=== PATIENT | male | born 1955 | race Caucasian/White ===

== ENCOUNTER 2017-04-17 05:38 | Inpatient (IN) | payer BC ==
--- NOTE | 2017-04-08 17:50 | HP ---
HISTORY OF PRESENT ILLNESS: Mr. Aaron is a 62-year-old male, who presents with symptoms of neurogeni c claudication. With standing and walking, he has extreme pain, tingling, numbness in bilateral legs and thighs, weakness in the posterior thighs. After standing for more than 5 minutes, he complains of numbness in the S1 dermatome bilaterally. He can walk for about 200 yards before having to sit do wn and lean forward, which immediately relieves the pain in his legs. The pain is helped somewhat wi th tramadol. He has not tried physical therapy for injections for that in the lumbar spine. He jose es any bowel or bladder incontinence. IMAGING: MRI and x-rays of his spine are on CD. REVIEW OF SYSTEMS: Ten-point review of systems complete is otherwise negative unless stated in the a aimee HPI. PAST MEDICAL HISTORY: Meningitis, broken left ankle, right shoulder, right rotator cuff. PAST SURGICAL HISTORY: Left ankle surgery at the age 30, right shoulder and rotator cuff repair in 2 012. HOSPITALIZATIONS: For surgeries only. FAMILY HISTORY: Noncontributory. SOCIAL HISTORY: Former smoker for 40 years 2 packs a day. Drinks alcohol daily. Retired maintenance mechanic telephone. He is and has 1 child. MEDICATIONS: 1. Taking Lisinopril 20 mg tablet 1 tablet orally once a day. 2. Celecoxib 400 mg capsule 1 capsule with food orally once a day. 3. Tramadol HCL 50 mg tablet 1 tablet as needed orally q.6 hours. 4. mide 10 mg tablet 1 tablet orally once a day. 5. Gabapentin 100 mg capsule 1 capsule orally 3 times a day. ALLERGIES: No known drug allergies. PHYSICAL EXAMINATION: HEENT: Normocephalic, atraumatic. Hearing intact. Moist mucous membranes. Trachea is midline. EYES: Pupils are equal and reactive to light. Extraocular muscles are intact. Sclerae is white, no nicteric. PSYCHIATRIC: Normal mood and affect. CARDIOVASCULAR/CARDIOPULMONARY: No cyanosis or clubbing noted. Intact pedal pulses bilaterally. MUSCULOSKELETAL: Lower extremities, 5/5 strength in bilateral iliopsoas, quadriceps, hamstrings, rig ht tibialis anterior, extensor hallucis longus. Subjective weakness when standing for more than 5 mi nutes. Sensory deficits in multiple dermatomal patterns. Tender to palpation in the midline lumbar spine. RESPIRATORY: The patient has bilateral symmetric chest rise. Appears to be no shortness breath all lung santos sound clear with no wheezing or crackles. NEUROLOGIC: Cranial nerves II-XII are grossly intact. Speech is fluent. Answers my questions appro priately. He has an antalgic gait and station. ASSESSMENT: 1. Neurogenic claudication due to lumbar spinal stenosis. 2. Epidural lipomatosis. 3. Spondylolisthesis in lumbosacral region. PLAN: Dr. Sanchez offered an L3-S1 with L5-S1 TLIF laminectomy. Informed consent was given. We d iscussed the indications, risks, benefits, alternatives, and expected results from surgery. The risk s discussed included, but were not limited to bleeding, infection, CSF leak, nerve damage, weakness, incontinence, cauda equina injury, arachnoiditis, paralysis, ventilator dependence, wheelchair depend ence, loss of vision, hardware misplacement, cardiopulmonary complications of anesthesia or . L fernando-term complications discussed included, but were not limited future surgery. He understands the risks and is willing to proceed with the surgery.
[2017-04-16 12:02] VITALS: BMI 31.7
[2017-04-17] MEDS ORDERED: Fentanyl 100 MCG/2 ML VIAL ONE ×6 (06:08→14:47)
[2017-04-17] MEDS ORDERED: Midazolam HCl 2 mg/2 ml Vial ONE (06:08)
[2017-04-17] MEDS ORDERED: Bupivacaine PF 0.5% 30 ML VIAL ONE (06:17)
[2017-04-17] MEDS ORDERED: Thrombin 5000 UNITS/5 ML VIAL ONE (06:17)
[2017-04-17] MEDS ORDERED: Sodium Chloride 0.9% 30 ML ONE (06:17)
[2017-04-17] MEDS ORDERED: Levofloxacin 500 mg/D5W 100 ml Premix Bag ONE (06:29)
[2017-04-17] MEDS ORDERED: Clindamycin/D5W 900 mg/50 ml Premix Bag ONE (06:29)
[2017-04-17 06:41] LABS: #Basophils 0.1 thou/uL (0.0-0.2); #Eosinphils 0.2 thou/uL (0.0-0.7); #Lymphocytes 1.5 thou/uL (1.20-3.40); #Monocytes 0.6 thou/uL (0.11-0.59); #Neutrophils 4.3 thou/uL (1.40-6.50); %Basophils 1.5 % (0.0-1.0); %Eosinophils 2.8 % (0.0-10.0); %Lymphocytes 22.4 % (21.0-51.0); %Monocytes 9.5 % (0.0-10.0); %Neutrophils 63.7 % (42.0-75.0); Hemoglobin 14.9 g/dL (14.0-18.0); Mean Corpuscular HGB CONC 32.5 g/dL (32.0-36.0); Mean Corpuscular Hemoglobin 29.3 pg (27.0-31.0); Mean Corpuscular Volume 90.3 fl (80.0-94.0); Mean Platelet Volume 8.9 fL (7.4-10.4); Platelet Count 222 thou/uL (130-400); RBC Distribution Width 11.4 % (11.5-14.5); White Blood Cell (WBC) Count 6.8 thou/uL (4.8-10.8)
[2017-04-17 06:46] LABS: PTT 30.6 SEC (22.9-36.1)
[2017-04-17] MEDS ORDERED: Fentanyl 250 MCG/5 ML VIAL ONE (07:01)
[2017-04-17] MEDS ORDERED: Rocuronium Bromide 50 MG/5 ML VIAL ONE (11:09)
[2017-04-17] MEDS ORDERED: HYDROmorphone 0.5 MG/0.5 ML SYRINGE ONE ×2 (13:15→13:17)
[2017-04-17] MEDS ORDERED: Meperidine HCl/PF 25 MG/ML VIAL SLOW IVP PRN (13:21)
[2017-04-17] MEDS ORDERED: HYDROmorphone 2 MG/ML VIAL SLOW IVP PRN (13:21)
[2017-04-17] MEDS ORDERED: Ondansetron HCl/PF 4 MG/2 ML Vial IVP PRN (13:21)
[2017-04-17] MEDS ORDERED: Morphine 4 MG/ML Carpuject SLOW IVP PRN (13:21)
[2017-04-17] MEDS ORDERED: Morphine Sulfate 2 MG/ML SYRINGE SLOW IVP PRN (13:21)
[2017-04-17] MEDS ORDERED: Acetaminophen/Codeine 30-300mg Tablet PO PRN (13:21)
[2017-04-17] MEDS ORDERED: Promethazine HCl 25 MG/ML VIAL SLOW IVP PRN (13:21)
[2017-04-17] MEDS ORDERED: Famotidine 20 MG TAB PO PRN (13:24)
--- NOTE | 2017-04-17 13:43 | OP ---
DATE OF PROCEDURE: 04/17/2017 SURGEON: Dr. Anabel Sanchez [employer] CONSULTANT: Philip Encarnacion PA-C PREOPERATIVE INDICATION: Treat pain, prevent neurological deterioration. PREOPERATIVE DIAGNOSES: Intervertebral disk disease with lumbar stenosis at the L3-4, L4-5 and L5-S1 , spondylolisthesis L5-S1, unstable. POSTOPERATIVE DIAGNOSES: : Intervertebral disk disease with lumbar stenosis at the L3-4, L4-5 and L 5-S1, spondylolisthesis L5-S1, unstable. OPERATIVE PROCEDURE: Decompressive laminectomy, medial facetectomy, foraminotomy L3-L4, L4-L5, L5-S1 , transforaminal lumbar interbody arthrodesis L5-S1, placement of intervertebral biomechanical device L5-S1, pedicle screw and lopez instrumentation L5-S1, posterolateral arthrodesis L5-S1. Local morseli zed autograft, morselized allograft, and operating microscope. PREOPERATIVE MEDICATIONS: Ancef 2 grams IV. DRAIN NUMBER: One. DRAIN TYPE: 10 [place] Blaise. OPERATIVE DICTATION: The patient was brought to the operating room. General endotracheal anesthesia was induced. The patient was positioned prone on the Rosalio frame with his chest and hips supporte d by the appropriate attachments for the Rosalio frame. A lateral fluoro radiograph was used to plan our incision. The lumbar skin was sterilely prepped and draped. We opened with a 10 blade knife an d controlled bleeding with bipolar and monopolar cautery. We used monopolar cautery to dissect throu gh subcutaneous tissues to the thoracodorsal fascia. We incised the fascia in the midline and reflec herminia the paraspinal muscles off the spinous process and lamina of L3, L4, L5, and S1. Lateral fluoro radiograph was used to confirm the levels upon which we were operating. We then carried our dissecti on over the facet joints at L4-5 and L5-S1 to expose the sacral ala and the transverse processes of L 5 on both sides. Using an Adson rongeur to remove the spinous process of L3, L4, L5, and the superio r portion of S1 and Kerrison rongeurs were used to fashion a laminectomy. The operative microscope w as brought into the field. Under microscopic magnification using microsurgical techniques, we carefully undermined the lateral r ecesses. We performed medial facetectomies. We performed foraminotomies of L3, L4, L5, and S1 nerve roots. At the completion of our decompression, a Lehman ball probe could pass over each interspace and could pass through each lateral recess and out the foramen with all the nerve roots that we had d ecompressed. We turned our attention to arthrodesis at L5-S1. We performed a complete facetectomy on the right at L5-S1 and accessed the intervertebral space throu gh the foramen. We incised the disk space and removed disk contents using curettes and rongeurs. Us ing a bone rasp w prepared the endplates for grafting, we measured the height of the interspace to 11 mm. A laminectomy bone was carefully cleaned of all soft tissue attachments. It was morcellized on the back table and added to demineralized bone matrix as our fusion substrate. The substrate was pa cked into an 11 mm PEEK intervertebral graft. A PEEK graft with a bone substrate inside it was advan tim into the L5-S1 interspace under radiographic guidance to the appropriate depth. We turned our at tention to pedicle screw instrumentation. The operative microscope was taken out of the field. Bony anatomic landmarks, palpation of the media l portion of the pedicles, and a lateral fluoro radiograph was used as a guide to choose entry points for pedicle screws at L5 and S1 bilaterally. We advanced the entry points to a trajectory through t he pedicles with a bone awl, and we then tapped each trajectory. We found the trajectories completel y encased in bone. We placed 6.5 mm diameter pedicle screws at L5 and S1 on both sides. A 360 degre e image set was generated with the isocenter C-arm. This confirmed adequate positioning of our instr umentation. We irrigated copiously with bacitracin irrigation. We then decorticated the transverse process of L5 and the sacral ala bilaterally. Over the decorticated bone, we left demineralized bone matrix and morselized autograft as our posterolateral fusion substrate. We brought rods down into o ur screw heads and tightened caps over the rods. Before final tightening, we compressed across the i nterspace to keep our interbody graft in place. Caps were tightened using [id number] mech anism to the adequate tightness. We then irrigated the center of the wound. We waxed the bone edges and controlled epidural bleeding with gentle bipolar cautery. We tunneled a drain inferiorly throug h a separate stab incision. We treated the wound with vancomycin powder. We closed in anatomic laye rs over a drain. This was a clean case and no contamination.
[2017-04-17] MEDS ORDERED: PROPOFOL 200 MG/20 ML VIAL ONE (14:30)
[2017-04-17] MEDS ORDERED: PHENYLEPHRINE-NS 100 MCG/ML 10 ML SYRINGE ONE (14:30)
[2017-04-17] MEDS ORDERED: Labetalol 100 MG/20 ML MDV ONE (14:30)
[2017-04-17] MEDS ORDERED: Glycopyrrolate 0.2 MG/ML 5 ML SYRINGE ONE (14:30)
[2017-04-17] MEDS ORDERED: Dexamethasone 20 MG/5 ML VIAL ONE (14:30)
[2017-04-17] MEDS ORDERED: Ondansetron HCl/PF 4 MG/2 ML Vial ONE (14:30)
[2017-04-17] MEDS ORDERED: Lidocaine 1% PF 5 ML VIAL ONE (14:30)
[2017-04-17] MEDS ORDERED: Promethazine HCl 25 MG/ML VIAL ONE (15:27)
[2017-04-17] MEDS: Sodium Chloride 0.9% 1,000 ML IV SCH ×2 (16:04→20:16)
[2017-04-17] MEDS: Clindamycin/D5W 900 MG in Premix Bag 1 BAG IVPB SCH ×2 (16:11→20:16)
[2017-04-17] MEDS: Acetaminophen/Codeine 30-300mg Tablet PO PRN (17:16)
[2017-04-17] MEDS: Cyclobenzaprine 10 MG TAB PO PRN (20:16)
[2017-04-17] MEDS: traMADol HCl 50 MG TAB PO PRN (20:16)
[2017-04-18] MEDS: traMADol HCl 50 MG TAB PO PRN ×2 (02:46→16:03)
[2017-04-18] MEDS: Acetaminophen/Codeine 30-300mg Tablet PO PRN ×6 (02:48→22:16)
[2017-04-18] MEDS: Cyclobenzaprine 10 MG TAB PO PRN ×3 (05:04→22:16)
[2017-04-18] MEDS: Clindamycin/D5W 900 MG in Premix Bag 1 BAG IVPB SCH ×3 (05:04→22:15)
[2017-04-18] MEDS: Ezetimibe 10 MG TAB PO SCH (08:51)
[2017-04-18] MEDS: Lisinopril 20 MG TAB PO SCH (08:51)
[2017-04-18] MEDS: Sodium Chloride 0.9% 1,000 ML IV SCH (18:39)
[2017-04-19] MEDS: Acetaminophen/Codeine 30-300mg Tablet PO PRN ×7 (02:32→21:38)
[2017-04-19] MEDS: traMADol HCl 50 MG TAB PO PRN ×2 (02:36→17:51)
[2017-04-19] MEDS: Gabapentin 100 MG CAP PO PRN (02:36)
[2017-04-19] MEDS: Cyclobenzaprine 10 MG TAB PO PRN ×3 (05:40→21:38)
[2017-04-19] MEDS: Clindamycin/D5W 900 MG in Premix Bag 1 BAG IVPB SCH ×3 (05:41→21:40)
[2017-04-19] MEDS: Sodium Chloride 0.9% 1,000 ML IV SCH ×2 (06:35→20:51)
[2017-04-19] MEDS: Lisinopril 20 MG TAB PO SCH (08:38)
[2017-04-19] MEDS: Ezetimibe 10 MG TAB PO SCH (08:38)
[2017-04-20] MEDS: Acetaminophen/Codeine 30-300mg Tablet PO PRN ×3 (02:36→10:51)
[2017-04-20] MEDS: traMADol HCl 50 MG TAB PO PRN (02:38)
[2017-04-20] MEDS: Gabapentin 100 MG CAP PO PRN (02:38)
[2017-04-20] MEDS: Cyclobenzaprine 10 MG TAB PO PRN (05:51)
[2017-04-20] MEDS: Clindamycin/D5W 900 MG in Premix Bag 1 BAG IVPB SCH (06:16)
--- NOTE | 2017-04-20 06:43 | PRG ---
DATE OF SERVICE: 04/20/2017 NEUROSURGERY PROGRESS NOTE SUBJECTIVE: Mr. Aaron is 3 days out from decompression fusion in lumbar spine. He had L3-S1 laminec majo and a transforaminal lumbar interbody arthrodesis at L5-S1 for listhesis. Over the weekend, he is ambulatory. He has some discomfort from positioning on the operating table with some pain over th e anterior iliac crest and some anterior thigh pain that was nondermatomal. The radiating pain down the back of his legs in a radicular fashion is gone. He has some residual numbness and the back is s ore from surgery. Drain output over the weekend was slightly too high to remove the drain, it is tapering off. In fact , over almost of 23-hour, there have been 55 mL recorded. On examination, I do not find any neurological deficits. Mr. Aaron, when he is safe for his activities of daily living, can have this drain removed, received his last dose of IV antibiotics and then be discharged home.
[2017-04-20 09:51] VITALS: TEMP 97.7
[2017-04-20] MEDS: Sodium Chloride 0.9% 1,000 ML IV SCH (10:26)
[2017-04-20] MEDS: Lisinopril 20 MG TAB PO SCH (10:50)
[2017-04-20] MEDS: Ezetimibe 10 MG TAB PO SCH (10:50)
[2017-04-20 10:53] VITALS: BP 114/74
--- NOTE | 2017-04-21 14:15 | DIS ---
DATE OF ADMISSION: 04/17/2017. DATE OF DISCHARGE: 04/20/2017. ADMISSION DIAGNOSES: Intervertebral disk disease with lumbar stenosis L3-L4, L4-L5, and L5-S1; spond ylolisthesis at L5-S1, which is unstable. DISCHARGE DIAGNOSES: Intervertebral disk disease with lumbar stenosis L3-L4, L4-L5, and L5-S1; spon dylolisthesis at L5-S1, which is unstable. DISCHARGE CONDITION: The patient is stable on discharge. CONSULTATIONS: Physical therapy. PROCEDURES: Decompressive laminectomy, medial facetectomy, foraminotomy at L3-S1, transforaminal lum bar interbody arthrodesis at L5-S1 with placement of intervertebral biomechanical device at L5-S1, pe dicle screw and lopez instrumentation at L5-S1, and posterolateral arthrodesis at L5-S1. Local morseli zed autograft and local morselized allograft with an operative microscope. BRIEF HISTORY OF PRESENT ILLNESS: Mr. Aaron is a 62-year-old male who presents with symptoms of neur ogenic claudication with standing and walking. He has extreme pain, tingling, and numbness in bilate ral legs and thighs; weakness in the posterior thighs after walking for more than 5 minutes. The agaipto n is worse in the S1 dermatome bilaterally. He can walk approximately 200 yards before he has to sit down or lean forward, which relieves his pain. DISCHARGE PHYSICAL EXAMINATION: HEENT: Normocephalic, atraumatic. Hearing intact. Moist mucous membranes. Trachea is midline. EYES: Pupils are equal and reactive to light. Extraocular muscles are intact. Sclerae are white, n onicteric. RESPIRATORY: The patient has bilateral symmetric chest rise, appears to have no shortness of breath. NEUROLOGIC: Cranial nerves II through XII are grossly intact. Speech is fluent. He answers my ques tions appropriately. He has normal gait and station. LOWER EXTREMITY/MUSCULOSKELETAL: The patient has resolving S1 radiculopathy bilaterally and good str ength in his legs bilaterally. He is able to ambulate with no assistance. HOSPITAL COURSE: The patient's hospital course went well. There were no acute events. There was a drain placed after surgery and over 2 days postoperatively, the drain decreased to 5 mL per hour for 6 hours. The drain was discontinued at this time. Antibiotics were given while the drain was in mesha ce. ACTIVITY: The patient can have regular activity with restrictions of lifting, twisting, bending, or turning. DIET: The patient can have a regular diet on discharge. HOME MEDICATIONS: Include Zantac, tramadol, lisinopril, , Gabapentin, cyclobenzaprine, acetamin ophen with codeine, Tylenol No. 3.
--- NOTE | 2017-06-15 21:55 | EKG ---
Test Reason : PREOP Blood Pressure : / mmHG Vent. Rate : 075 BPM Atrial Rate : 075 BPM P-R Int : 152 ms QRS Dur : 090 ms QT Int : 394 ms P-R-T Axes : 037 -27 049 degrees QTc Int : 439 ms Normal sinus rhythm Normal ECG No previous ECGs available Confirmed by THU MARLOW M.D. ([id number]) on 06/15/2017 9:55:12 PM Referred By: BATSHEVA Confirmed By:THU MARLOW M.D.
== END 2017-04-20 14:00 | disposition home or self-care (01) | DRG 460 ==
LOC: EDBD → SURG A 05:38 → SJJU 14:46
PROVIDERS: ADMIT Neurological Surgery; ATTEND Neurological Surgery
PROC: 0SG30AJ Fusion of Lumbosacral Joint with Interbody Fusion Device, Posterior Approach, Anterior Column, Open Approach (ICD-10-PCS; principal; 2017-04-17)
PROC: 01NB0ZZ Release Lumbar Nerve, Open Approach (ICD-10-PCS; 2017-04-17)
DX: M48.062 Spinal stenosis, lumbar region with neurogenic claudication (principal); E88.2 Lipomatosis, not elsewhere classified; M43.17 Spondylolisthesis, lumbosacral region
CPT/HCPCS: 36415; 76001; 85025; 85610; 85730; 86850; 86900; 86901; 93005; 93010; A4216; C1713; C1768; G8978-GP-CK; G8979-GP-CK; G8980-GP-CK; J0131; J1100; J1170; J1956; J2001; J2250; J2270; J2405; J2550; J2704; J3010; J3370; J3490; S0020

== ENCOUNTER 2022-04-21 11:10 | Outpatient (CLI) | payer MEDICARE ==
[2022-04-21 12:44] LABS: Hemoglobin 14.1 g/dL (13.5-17.5); Mean Corpuscular HGB CONC 33.3 g/dL (32.0-36.0); Mean Corpuscular Hemoglobin 29.1 pg (27.0-33.0); Mean Corpuscular Volume 87.6 fl (81.2-95.1); Mean Platelet Volume 11.5 fl (7.4-10.4); Platelet Count 277 10x3/uL (150-450); RBC Distribution Width 13.2 % (11.5-14.5); Red Blood Cell (RBC) Count 4.84 10x6/uL (4.32-5.72)
[2022-04-21 12:54] LABS: INR-International Normal Ratio 0.9; PTT 25.6 sec (22.0-33.0); Prothrombin Time 10.1 sec (9.5-12.1)
== END 2022-04-21 11:11 | disposition home or self-care (01) ==
LOC: LABBT 11:10
PROVIDERS: ATTEND Neurological Surgery
DX: Z01.812 Encounter for preprocedural laboratory examination (principal); M54.12 Radiculopathy, cervical region
CPT/HCPCS: 85027; 85610; 85730

== ENCOUNTER → 2022-04-24 | Day surgery (SDC) | payer MEDICARE ==
[2022-04-22 13:00] VITALS: BMI 36.5
[~2022-04-24] MED LIST: Clindamycin/D5W 900 mg/50 ml Premix Bag ONE; Dexamethasone 20 MG/5 ML VIAL ONE; Glycopyrrolate 0.2 MG/ML 5 ML SYRINGE ONE; HYDROcodone/Acetaminophen 5/325 mg Tablet ONE; HYDROmorphone 2 MG/ML VIAL ONE; Levofloxacin 500 mg/D5W 100 ml Premix Bag ONE; Lidocaine 1% PF 5 ML VIAL ONE; NEOSTIGMINE 3 MG/3 ML SYR 3 MG/3 ML SYRINGE ONE; Neomycin-Polymyxin 1 ML AMP ONE; Ondansetron HCl/PF 4 MG/2 ML Vial IVP PRN; Ondansetron PF 4 MG/2 ML Vial ONE; PHENYLEPHRINE-NS 100 MCG/ML 10 ML SYRINGE ONE; PROPOFOL 200 MG/20 ML VIAL ONE; Promethazine HCl 25 MG/ML VIAL IM PRN; Rocuronium Bromide 10 MG/ML (10ML VIAL) ONE; Thrombin 5000 UNITS/5 ML VIAL ONE; fentaNYL PF 100 MCG/2 ML SYRINGE ONE
== END | disposition home or self-care (01) ==
LOC: SDC 09:57
PROVIDERS: ATTEND Neurological Surgery
PROC: 0RG20A0 Fusion of 2 or more Cervical Vertebral Joints with Interbody Fusion Device, Anterior Approach, Anterior Column, Open Approach (ICD-10-PCS; principal; 2022-04-24)
DX: M50.122 Cervical disc disorder at C5-C6 level with radiculopathy (principal); M50.123 Cervical disc disorder at C6-C7 level with radiculopathy; M50.022 Cervical disc disorder at C5-C6 level with myelopathy; M50.023 Cervical disc disorder at C6-C7 level with myelopathy; M48.02 Spinal stenosis, cervical region; E78.00 Pure hypercholesterolemia, unspecified; I10 Essential (primary) hypertension; Z86.16 Personal history of COVID-19; Z87.891 Personal history of nicotine dependence; Z79.899 Other long term (current) drug therapy; Z88.0 Allergy status to penicillin
CPT/HCPCS: C1713; J1100; J1170; J1956; J2405; J2704; J3490